=== PATIENT | female | born 1970 | race African-American/Black ===

== ENCOUNTER 2016-08-26 21:41 | Emergency (ER) | payer MEDICARE ==
[2016-08-26] MEDS ORDERED: Pantoprazole 40 MG VIAL ONE (22:21)
[2016-08-26] MEDS ORDERED: Promethazine HCl 25 MG/ML VIAL ONE (22:21)
[2016-08-26] MEDS ORDERED: Sodium Chloride 0.9% 1,000 ML BAG ONE (22:38)
[2016-08-26] MEDS ORDERED: HYDROcodone/Acetaminophen 10/325 mg Tablet ONE (23:21)
== END 2016-08-26 23:35 | disposition home or self-care (01) ==
LOC: MADERS 21:41
DX: R10.13 Epigastric pain (principal); G89.29 Other chronic pain; K21.9 Gastro-esophageal reflux disease without esophagitis; E66.9 Obesity, unspecified; Z79.82 Long term (current) use of aspirin; Z79.899 Other long term (current) drug therapy; Z79.2 Long term (current) use of antibiotics
CPT/HCPCS: 96361; 96374; 96375; C9113; J2270; J2550; J7050

== ENCOUNTER 2016-09-12 12:54 | Outpatient (CLI) | payer MEDICARE ==
[2016-09-12 13:35] LABS: ALT (SGPT) 14 U/L (8-55); AST (SGOT) 19 U/L (5-34); Albumin 3.5 g/dL (3.5-5.0); Alkaline Phosphatase 75 U/L (40-150); Anion Gap 11 mmol/L (10-20); BUN (Urea Nitrogen) 12 mg/dL (7.0-18.7); Bilirubin, Total 0.6 mg/dL (0.2-1.2); Calc. Creatinine Clearance 0 mL/min (70-130); Calcium 9.3 mg/dL (7.8-10.44); Carbon Dioxide 25 mmol/L (22-29); Chloride 110 mmol/L (98-107); Estimated GFR-MDRD Greater than 90; Globulin 2.1 g/dL (2.4-3.5); Glucose 91 mg/dL (70-105); Lipase 4 U/L (8-78); Potassium 3.8 mmol/L (3.5-5.1); Protein, Total 5.6 g/dL (6.0-8.3); Sodium 142 mmol/L (136-145)
[2016-09-15 19:11] LABS: H. pylori IgA ABS Less than 9.0 units (0.0-8.9); H. pylori IgG ABS Less than 0.9 U/mL (0.0-0.8); H. pylori IgM ABS Less than 9.0 units (0.0-8.9)
== END 2016-09-12 12:55 | disposition home or self-care (01) ==
LOC: MADLABBHPM 12:54
PROVIDERS: ATTEND Family Medicine
DX: R10.13 Epigastric pain (principal); R14.0 Abdominal distension (gaseous)
CPT/HCPCS: 36415; 82150; 83690

== ENCOUNTER 2017-06-09 17:34 | Emergency (ER) | payer MEDICARE ==
[2017-06-09 17:57] LABS: Bilirubin Negative (Negative); Blood, Urine Large (Negative); Clarity Cloudy (Clear); Glucose, Urine (Dipstick) Negative (Negative); Leukocyte Small (Negative); Nitrite Negative (Negative); Protein, Urine (Dipstick) > or equal to 300 mg/dL (Neg-Trace); Specific Gravity, Urine 1.025 (1.005-1.030)
[2017-06-09 17:59] LABS: RBC/HPF GREATER THAN 50-TNTC HPF (0-3)
[2017-06-09 18:04] LABS: Bacteria/HPF Rare-Few HPF (None Seen); Squamous Epithelial 0-3 HPF (0-3)
[2017-06-09 18:06] LABS: Pregnancy Test - Urine (BHCG) Negative (Negative); Pregu Control Background? CLEAR/WHITE (CLR/WHITE); Pregu Control Bar Appear? YES (CONTROL BAR); Specific Gravity 1.025 (1.002-1.036)
[2017-06-09] MEDS ORDERED: HYDROcodone/Acetaminophen 5/325 mg Tablet ONE (18:15)
[2017-06-09] MEDS ORDERED: Nitrofurantoin Monohyd/M-Cryst 100 MG CAP ONE (18:15)
== END 2017-06-09 18:20 | disposition home or self-care (01) ==
LOC: MADERS 17:34
DX: N30.91 Cystitis, unspecified with hematuria (principal); K21.9 Gastro-esophageal reflux disease without esophagitis; D50.0 Iron deficiency anemia secondary to blood loss (chronic); E66.9 Obesity, unspecified; Z79.82 Long term (current) use of aspirin; Z79.899 Other long term (current) drug therapy
CPT/HCPCS: 81003; 81015; 81025; 99283

== ENCOUNTER 2017-08-08 20:40 | Emergency (ER) | payer MEDICARE ==
[2017-08-08] MEDS ORDERED: Famotidine 20 MG TAB ONE (21:00)
[2017-08-08] MEDS ORDERED: Azithromycin 250 MG TAB ONE (21:00)
[2017-08-08] MEDS ORDERED: predniSONE 20 MG TAB ONE (21:00)
[2017-08-08] MEDS ORDERED: diphenhydrAMINE 25 MG CAP ONE (21:00)
== END 2017-08-08 21:05 | disposition home or self-care (01) ==
LOC: MADERS 20:40
DX: H10.45 Other chronic allergic conjunctivitis (principal); J01.90 Acute sinusitis, unspecified; K21.9 Gastro-esophageal reflux disease without esophagitis; D50.9 Iron deficiency anemia, unspecified; G89.29 Other chronic pain; E66.9 Obesity, unspecified; Z79.82 Long term (current) use of aspirin; Z79.899 Other long term (current) drug therapy
CPT/HCPCS: 99282; J7506

== ENCOUNTER 2017-09-03 13:02 | Emergency (ER) | payer MEDICARE ==
[2017-09-03] MEDS ORDERED: predniSONE 20 MG TAB ONE (13:22)
== END 2017-09-03 13:30 | disposition home or self-care (01) ==
LOC: MADERS 13:02
DX: M62.838 Other muscle spasm (principal); K21.9 Gastro-esophageal reflux disease without esophagitis; D50.0 Iron deficiency anemia secondary to blood loss (chronic); E66.9 Obesity, unspecified; Z79.899 Other long term (current) drug therapy; Z79.82 Long term (current) use of aspirin; V43.92XA Unspecified car occupant injured in collision with other type car in traffic accident, initial encounter
CPT/HCPCS: 99283; J7506

== ENCOUNTER 2017-09-10 16:38 | Outpatient (CLI) | payer MEDICARE ==
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
--- NOTE | 2017-09-10 18:08 | RAD ---
LUMBOSACRAL SPINE THREE VIEWS: HISTORY: Low back pain with sciatica. COMPARISON: None. FINDINGS: Three views of the lumbosacral spine show normal height and alignment of the vertebral bodies of the lumbar spine. There is vertebroplasty cement at multiple levels in the spine. There is no evidence of acute fracture or subluxation. IMPRESSION: No evidence of acute osseous abnormality. POS: [facility]
== END 2017-09-10 16:39 | disposition home or self-care (01) ==
LOC: MADRAD 16:38
PROVIDERS: ATTEND Family Medicine
DX: M54.41 Lumbago with sciatica, right side (principal); M54.42 Lumbago with sciatica, left side; M54.2 Cervicalgia
CPT/HCPCS: 72050; 72100

== ENCOUNTER 2017-11-09 12:47 | Outpatient (CLI) | payer MEDICARE ==
[~2017-11-09 12:47] MED LIST: Iopamidol 370 76% 100 ML VIAL ONE
--- NOTE | 2017-11-09 14:40 | CT ---
CT ABDOMEN AND PELVIS WITH IV AND ORAL CONTRAST: HISTORY: Dysuria. Pelvic pain. FINDINGS: The lung bases are clear. The gallbladder is decompressed. The liver, spleen, kidneys, adrenal glan ds, and pancreas are unremarkable. No urinary tract obstruction or calcification is evident. The ur inary bladder is incompletely distended. No free fluid is evident. No evidence of bowel obstruction . Degenerative changes of the lumbar spine. IMPRESSION: No urinary tract abnormalities are demonstrated to explain the patient's symptoms. No evidence of ur inary tract obstruction. POS: [facility]
== END 2017-11-09 12:48 | disposition home or self-care (01) ==
LOC: MADCT 12:47
PROVIDERS: ATTEND Family Medicine
DX: R10.2 Pelvic and perineal pain (principal); R30.0 Dysuria; R33.9 Retention of urine, unspecified
CPT/HCPCS: 74176

== ENCOUNTER 2018-04-13 04:31 | Emergency (ER) | payer MEDICARE | END 2018-04-13 05:40 | disposition home or self-care (01) | LOC: MADERS 04:31 | DX: J11.1 Influenza due to unidentified influenza virus with other respiratory manifestations (principal); D50.0 Iron deficiency anemia secondary to blood loss (chronic); E66.9 Obesity, unspecified; K21.9 Gastro-esophageal reflux disease without esophagitis; Z79.891 Long term (current) use of opiate analgesic; Z79.899 Other long term (current) drug therapy; Z79.82 Long term (current) use of aspirin | CPT/HCPCS: 87804; 94640; J7620 ==

== ENCOUNTER 2019-01-08 04:58 | Emergency (ER) | payer MEDICARE ==
[2019-01-08] MEDS ORDERED: Acetaminophen 500 MG TAB ONE (05:28)
[2019-01-08] MEDS ORDERED: Ondansetron ODT 4 MG TAB ONE ×2 (05:28→07:03)
[2019-01-08] MEDS ORDERED: Levofloxacin 500 mg/D5W 100 ml Premix Bag ONE (06:18)
--- NOTE | 2019-01-08 07:28 | RAD ---
RADIOGRAPH CHEST 2 VIEW: DATE: 01/08/2019 TIME: 5:34 AM HISTORY: 44 year old female with cough and fever. COMPARISON: 01/24/2019 FINDINGS: There is a new airspace opacity in the left lower lobe. The rest of lungs are clear. Cardiomediastina l silhouette is normal. No pleural effusion or pneumothorax. IMPRESSION: Left lower lobe pneumonia.
== END 2019-01-08 07:40 | disposition home or self-care (01) ==
LOC: MADERS 04:58
DX: J18.9 Pneumonia, unspecified organism (principal); K21.9 Gastro-esophageal reflux disease without esophagitis; D50.9 Iron deficiency anemia, unspecified; E66.9 Obesity, unspecified
CPT/HCPCS: 71046; 87804; J1956; J7620; Q0162

== ENCOUNTER 2019-04-11 19:43 | Emergency (ER) | payer MEDICARE ==
[2019-04-11] MEDS ORDERED: Ketorolac Tromethamine 60 MG/2 ML VIAL ONE (20:13)
== END 2019-04-11 20:45 | disposition home or self-care (01) ==
LOC: MADERS 19:43
DX: M54.5 Low back pain (principal); K21.9 Gastro-esophageal reflux disease without esophagitis; D50.9 Iron deficiency anemia, unspecified; E66.9 Obesity, unspecified; Z79.899 Other long term (current) drug therapy
CPT/HCPCS: 96372; 99283; J1885

== ENCOUNTER 2019-05-27 13:37 | Outpatient (CLI) | payer MEDICARE ==
--- NOTE | 2019-05-27 14:31 | RAD ---
2 VIEW CHEST: Date: 05/27/2019 HISTORY: Bronchitis with wheezing. COMPARISON: 01/08/2019. FINDINGS: There is hazy alveolar infiltrate seen in the right mid and right lower lung. There is more confluent alveolar infiltrate in the left lower lobe. The prior exam revealed a left lower lobe infiltrate as well. Heart and mediastinum appear unremarkable and stable. IMPRESSION: There are bilateral infiltrates as described. POS: [facility]
== END 2019-05-27 13:38 | disposition home or self-care (01) ==
LOC: MADRAD 13:37
PROVIDERS: ATTEND Family Medicine
DX: J20.9 Acute bronchitis, unspecified (principal); R06.2 Wheezing; R91.8 Other nonspecific abnormal finding of lung field
CPT/HCPCS: 71046

== ENCOUNTER 2019-06-11 08:54 | Outpatient (CLI) | payer MEDICARE ==
--- NOTE | 2019-06-11 10:53 | RAD ---
PA AND LATERAL VIEWS CHEST: HISTORY: Pneumonia. COMPARISON: 05/27/2019. FINDINGS: The heart size is normal. The lungs are expanded without lobar consolidation, pneumothoraces, or ple ural effusions. The previously noted infiltrates have resolved in the interim. IMPRESSION: No acute process. POS: [facility]
== END 2019-06-11 08:55 | disposition home or self-care (01) ==
LOC: MADRAD 08:54
PROVIDERS: ATTEND Family Medicine
DX: J18.9 Pneumonia, unspecified organism (principal)
CPT/HCPCS: 71046

== ENCOUNTER 2020-01-13 06:09 | Emergency (ER) | payer SELFPAY ==
[2020-01-13 06:55] LABS: #Lymphocytes 0.9 thou/uL (1.20-3.40); #Monocytes 0.2 thou/uL (0.11-0.59); #Neutrophils 14.1 thou/uL (1.40-6.50); %Basophils 0.2 % (0.0-1.0); %Eosinophils 0.2 % (0.0-10.0); %Lymphocytes 5.8 % (21.0-51.0); %Monocytes 1.4 % (0.0-10.0); %Neutrophils 92.4 % (42.0-75.0); Hemoglobin 11.5 g/dL (12.0-16.0); Mean Corpuscular HGB CONC 31.2 g/dL (32.0-36.0); Mean Corpuscular Hemoglobin 29.5 pg (27.0-31.0); Mean Corpuscular Volume 94.5 fL (78.0-98.0); Mean Platelet Volume 12.2 fL (7.4-10.4); Platelet Count 195 thou/uL (130-400); RBC Distribution Width 15.3 % (11.5-14.5); Red Blood Cell (RBC) Count 3.89 mill/uL (4.20-5.40); White Blood Cell (WBC) Count 15.3 thou/uL (4.8-10.8)
[2020-01-13 06:59] LABS: BHCG - Serum Negative (NEGATIVE); Pregs Control Background? CLEAR/WHITE (CLR/WHITE); Pregs Control Bar Appear? YES (CONTROL BAR)
[2020-01-13 07:03] LABS: ALT (SGPT) 31 U/L (8-55); AST (SGOT) 26 U/L (5-34); Albumin 3.7 g/dL (3.5-5.0); Alkaline Phosphatase 77 U/L (40-110); Anion Gap 18 mmol/L (10-20); BUN (Urea Nitrogen) 18 mg/dL (7.0-18.7); Calc. Creatinine Clearance 0 mL/min (70-130); Carbon Dioxide 22 mmol/L (22-29); Chloride 101 mmol/L (98-107); Estimated GFR-MDRD 48; Globulin 3.2 g/dL (2.4-3.5); Glucose 216 mg/dL (70-105); Protein, Total 6.9 g/dL (6.0-8.3); Sodium 137 mmol/L (136-145)
[2020-01-13 07:13] LABS: Anisocytosis SLIGHT = 6-15 cells (100X) (0-5/hpf)
[2020-01-13 07:14] LABS: Platelet Morphology Comment Appears Adequate
[2020-01-13] MEDS ORDERED: Sodium Chloride 0.9% 250 ML 250 ML ONE (07:38)
[2020-01-13] MEDS ORDERED: Sodium Chloride 0.9% 1,000 ML ONE ×2 (07:38→11:35)
[2020-01-13] MEDS ORDERED: Sodium Chloride 0.9% 100 ML ONE (07:38)
[2020-01-13] MEDS ORDERED: Azithromycin 500 MG VIAL ONE (07:38)
[2020-01-13] MEDS ORDERED: cefTRIAXone\\ROCEPHIN 2 GM VIAL ONE (07:39)
--- NOTE | 2020-01-13 07:41 | RAD ---
Chest one view HISTORY: Dyspnea. Cough. COVID positive. COMPARISON: 06/11/2019. FINDINGS: Cardiac silhouette is magnified by projection. Shallow inspiration accentuates pulmonary ma rkings. Mediastinum is midline. Ill-defined patchy areas of predominantly peripheral opacity are present throughout each lung. No lob ar consolidation or evidence of pneumothorax. Vertebroplasty cement evident at lower thoracic levels. IMPRESSION : Multifocal infiltrates consistent with COVID pneumonitis.
[2020-01-13] MEDS ORDERED: Enoxaparin Sodium 40 MG/0.4 ML SYRINGE ONE (07:44)
[2020-01-13] MEDS ORDERED: guaiFENesin/Codeine Phosphate 100 mg/10 mg 5 ml UD Cup ONE ×2 (11:19→11:25)
[2020-01-13] MEDS ORDERED: Guaifenesin DM 100-10/5 ML UDCUP ONE (11:25)
[2020-01-13] MEDS ORDERED: Albuterol 200 PUFF (6.7GM INHALER) ONE (11:32)
[2020-01-13] MEDS ORDERED: Dexamethasone 10 MG/ML VIAL ONE (11:34)
== END 2020-01-13 13:25 | disposition short-term general hospital (02) ==
LOC: MADERS 06:09
DX: A41.9 Sepsis, unspecified organism (principal); R65.20 Severe sepsis without septic shock; U07.1 COVID-19; J12.89 Other viral pneumonia; K21.9 Gastro-esophageal reflux disease without esophagitis
CPT/HCPCS: 71045; 80053; 83605; 84484; 84703; 85025; 85379; 93005; 96365; 96367; 96372; 96375; J0456; J0696; J1100; J1650; J3490; J7050

== ENCOUNTER 2020-05-10 19:24 | Emergency (ER) | payer MEDICARE ==
[2020-05-10 20:03] LABS: Bilirubin Negative (Negative); Blood, Urine Negative (Negative); Clarity Clear (Clear); Glucose, Urine (Dipstick) 100 mg/dL (Negative); Ketone, Urine Negative (Negative); Leukocyte Trace (Negative); Nitrite Negative (Negative); Protein, Urine (Dipstick) Trace mg/dL (Neg-Trace); Specific Gravity, Urine 1.025 (1.005-1.030); pH, Urine 6.5 (5.0-9.0)
[2020-05-10 20:08] LABS: Bacteria/HPF Rare-Few HPF (None Seen); RBC/HPF 0-3 HPF (0-3); Squamous Epithelial 0-3 HPF (0-3); WBC/HPF 0-3 HPF (0-3)
[2020-05-10] MEDS ORDERED: Morphine 2 MG/ML VIAL ONE (20:20)
[2020-05-10] MEDS ORDERED: Morphine 4 MG/ML VIAL ONE (20:20)
[2020-05-10] MEDS ORDERED: Ketorolac Tromethamine 30 MG/ML VIAL ONE (20:20)
== END 2020-05-10 20:38 | disposition home or self-care (01) ==
LOC: MADERS 19:24
DX: M54.42 Lumbago with sciatica, left side (principal); K21.9 Gastro-esophageal reflux disease without esophagitis; D50.9 Iron deficiency anemia, unspecified; E66.9 Obesity, unspecified; Z79.899 Other long term (current) drug therapy; Z85.79 Personal history of other malignant neoplasms of lymphoid, hematopoietic and related tissues
CPT/HCPCS: 81003; 81015; 96372; 99283; J1885; J2270

== ENCOUNTER 2020-07-17 07:40 | Emergency (ER) | payer MEDICARE | END 2020-07-17 09:25 | disposition home or self-care (01) | LOC: MADERS 07:40 | DX: J20.8 Acute bronchitis due to other specified organisms (principal); K21.9 Gastro-esophageal reflux disease without esophagitis; D50.9 Iron deficiency anemia, unspecified; E66.9 Obesity, unspecified; Z79.899 Other long term (current) drug therapy; Z79.82 Long term (current) use of aspirin | CPT/HCPCS: 71046; 87804 ==

== ENCOUNTER 2020-08-09 08:43 | Emergency (ER) | payer MEDICARE ==
[2020-08-09 09:15] LABS: Bilirubin Negative (Negative); Blood, Urine Trace (Negative); Clarity Clear (Clear); Glucose, Urine (Dipstick) 250 mg/dL (Negative); Ketone, Urine Negative (Negative); Leukocyte Negative (Negative); Nitrite Negative (Negative); Protein, Urine (Dipstick) 100 mg/dL (Neg-Trace); Specific Gravity, Urine 1.025 (1.005-1.030); pH, Urine 5.5 (5.0-9.0)
[2020-08-09] MEDS ORDERED: Cefepime 2 GM VIAL ONE (09:34)
[2020-08-09] MEDS ORDERED: Dexamethasone 10 MG/ML VIAL ONE (09:34)
[2020-08-09] MEDS ORDERED: Sodium Chloride 0.9% 100 ML ONE (09:34)
[2020-08-09 09:49] LABS: Bacteria/HPF Rare-Few HPF (None Seen); RBC/HPF 0-3 HPF (0-3); Squamous Epithelial 0-3 HPF (0-3); WBC/HPF 0-3 HPF (0-3)
[2020-08-09 10:01] LABS: ALT (SGPT) 22 U/L (8-55); AST (SGOT) 24 U/L (5-34); Albumin 3.9 g/dL (3.5-5.0); Alkaline Phosphatase 65 U/L (40-110); Anion Gap 15 mmol/L (10-20); BUN (Urea Nitrogen) 14 mg/dL (7.0-18.7); Bilirubin, Total 0.6 mg/dL (0.2-1.2); Calc. Creatinine Clearance 0 mL/min (70-130); Calcium 9.4 mg/dL (7.8-10.44); Carbon Dioxide 22 mmol/L (22-29); Chloride 107 mmol/L (98-107); Globulin 2.4 g/dL (2.4-3.5); Glucose 158 mg/dL (70-105); Lipase 10 U/L (8-78); Magnesium 1.6 mg/dL (1.6-2.6); Potassium 3.8 mmol/L (3.5-5.1); Protein, Total 6.3 g/dL (6.0-8.3); Sodium 140 mmol/L (136-145)
[2020-08-09 10:20] LABS: Anisocytosis SLIGHT = 6-15 cells (100X) (0-5/hpf); Band 14 % (5-11); Eosinophils 5 % (0-10); Hemoglobin 11.5 g/dL (12.0-16.0); Hypochromia SLIGHT = 6-15 cells (100X) (0-5/hpf); Lymphocytes 30 % (21-51); MDiff Complete? YES; Mean Corpuscular HGB CONC 29.8 g/dL (32.0-36.0); Mean Corpuscular Hemoglobin 29.2 pg (27.0-31.0); Mean Corpuscular Volume 98.2 fL (78.0-98.0); Mean Platelet Volume 9.7 fL (7.4-10.4); Monocytes 6 % (0-10); Neutrophil 45 % (42-75); Platelet Count 170 thou/uL (130-400); Platelet Morphology Comment Appears Adequate; RBC Distribution Width 15.7 % (11.5-14.5); Red Blood Cell (RBC) Count 3.95 mill/uL (4.20-5.40); White Blood Cell (WBC) Count 3.1 thou/uL (4.8-10.8)
[2020-08-09 11:04] LABS: SARS-CoV-2 NAA Rapid Test Not Detected (NotDetected)
[2020-08-09] MEDS ORDERED: Sodium Chloride 0.9% 250 ML 500 ML ONE (11:39)
[2020-08-09] MEDS ORDERED: Guaifenesin DM 100-10/5 ML UDCUP ONE (13:43)
== END 2020-08-09 14:13 | disposition short-term general hospital (02) ==
LOC: MADERS 08:43
DX: A41.9 Sepsis, unspecified organism (principal); R73.9 Hyperglycemia, unspecified; J84.9 Interstitial pulmonary disease, unspecified; D84.9 Immunodeficiency, unspecified; K21.9 Gastro-esophageal reflux disease without esophagitis; D50.9 Iron deficiency anemia, unspecified; E66.9 Obesity, unspecified; Z85.79 Personal history of other malignant neoplasms of lymphoid, hematopoietic and related tissues; Z79.899 Other long term (current) drug therapy; Z79.891 Long term (current) use of opiate analgesic; Z79.82 Long term (current) use of aspirin
CPT/HCPCS: 0240U; 71046; 80053; 83605; 83690; 83735; 84484; 85025; 87040; 94760; 81003; 81015; 96365; 96366; 96367; 96375; J0692; J1100; J1956; J3370; J3490; J7050

== ENCOUNTER 2020-10-03 09:06 | Emergency (ER) | payer MEDICARE ==
[2020-10-04 14:34] LABS: SARS-CoV-2 PCR by NAA Not Detected (NotDetected)
== END 2020-10-03 11:57 | disposition home or self-care (01) ==
LOC: MADERS 09:06
DX: J18.9 Pneumonia, unspecified organism (principal); Z20.822 Contact with and (suspected) exposure to COVID-19; K21.9 Gastro-esophageal reflux disease without esophagitis; D64.9 Anemia, unspecified; E66.9 Obesity, unspecified; Z79.82 Long term (current) use of aspirin; Z85.79 Personal history of other malignant neoplasms of lymphoid, hematopoietic and related tissues; Z79.891 Long term (current) use of opiate analgesic; Z79.899 Other long term (current) drug therapy
CPT/HCPCS: 71045; U0003; U0005

== ENCOUNTER 2020-12-04 22:45 | Emergency (ER) | payer MEDICARE ==
[2020-12-04 23:39] LABS: Bilirubin Negative (Negative); Blood, Urine Negative (Negative); Clarity Clear (Clear); Glucose, Urine (Dipstick) >=1000 mg/dL (Negative); Ketone, Urine Negative (Negative); Leukocyte Negative (Negative); Nitrite Negative (Negative); Protein, Urine (Dipstick) Negative (Neg-Trace); Urobilinogen 0.2 mg/dL (Less than 2)
[2020-12-05] MEDS ORDERED: Ibuprofen 600 MG TAB ONE (00:07)
[2020-12-05 00:38] LABS: Band 1 % (5-11); Hemoglobin 9.9 g/dL (12.0-16.0); Lymphocytes 30 % (21-51); MDiff Complete? YES; Mean Corpuscular HGB CONC 30.1 g/dL (32.0-36.0); Mean Corpuscular Volume 96.5 fL (78.0-98.0); Mean Platelet Volume 7.7 fL (7.4-10.4); Monocytes 20 % (0-10); Neutrophil 49 % (42-75); Platelet Count 418 thou/uL (130-400); Platelet Morphology Comment Appears Adequate; Red Blood Cell (RBC) Count 3.42 mill/uL (4.20-5.40); Tear Drops SLIGHT = 2-5 cells (100X) (0-1/hpf); White Blood Cell (WBC) Count 4.3 thou/uL (4.8-10.8)
[2020-12-05 00:43] LABS: ALT (SGPT) 19 U/L (8-55); AST (SGOT) 11 U/L (5-34); Albumin 3.4 g/dL (3.5-5.0); Alkaline Phosphatase 99 U/L (40-110); Anion Gap 15 mmol/L (10-20); BUN (Urea Nitrogen) 24 mg/dL (7.0-18.7); Bilirubin, Total 0.4 mg/dL (0.2-1.2); CK (CPK) 23 U/L (29-168); CRP (Inflammatory) 8.28 mg/dL (= or < 0.5); Calc. Creatinine Clearance 0 mL/min (70-130); Calcium 10.3 mg/dL (7.8-10.44); Carbon Dioxide 25 mmol/L (22-29); Chloride 100 mmol/L (98-107); Globulin 2.6 g/dL (2.4-3.5); Glucose 327 mg/dL (70-105); Potassium 4.3 mmol/L (3.5-5.1); Sodium 136 mmol/L (136-145)
[2020-12-05] MEDS ORDERED: Cyclobenzaprine 10 MG TAB ONE (00:59)
[2020-12-05] MEDS ORDERED: Ondansetron ODT 4 MG TAB ONE (00:59)
[2020-12-05 20:18] LABS: SARS-CoV-2 PCR by NAA Not Detected (NotDetected)
== END 2020-12-05 01:15 | disposition home or self-care (01) ==
LOC: MADERS 22:45
DX: M62.838 Other muscle spasm (principal); R50.9 Fever, unspecified; M54.50 Low back pain, unspecified; M54.6 Pain in thoracic spine; K21.9 Gastro-esophageal reflux disease without esophagitis; E66.9 Obesity, unspecified; Z20.822 Contact with and (suspected) exposure to COVID-19; X50.9XXA Other and unspecified overexertion or strenuous movements or postures, initial encounter
CPT/HCPCS: 80053; 81003; 82550; 84484; 85025; 86140; 87040; 87086; U0003; U0005; 36415; 99283; Q0162

== ENCOUNTER 2020-12-09 15:25 | Emergency (ER) | payer MEDICARE ==
[2020-12-09 16:35] LABS: Bilirubin Negative (Negative); Blood, Urine Negative (Negative); Clarity Clear (Clear); Glucose, Urine (Dipstick) >=1000 mg/dL (Negative); Ketone, Urine Negative (Negative); Leukocyte Negative (Negative); Nitrite Negative (Negative); Protein, Urine (Dipstick) 30 mg/dL (Neg-Trace); Specific Gravity, Urine 1.015 (1.005-1.030); Urobilinogen 0.2 mg/dL (Less than 2); pH, Urine 6.5 (5.0-9.0)
[2020-12-09 16:42] LABS: Bacteria/HPF Rare-Few HPF (None Seen); RBC/HPF 0-3 HPF (0-3); Squamous Epithelial 0-3 HPF (0-3); WBC/HPF 0-3 HPF (0-3)
[2020-12-09 17:20] LABS: ALT (SGPT) 35 U/L (8-55); AST (SGOT) 22 U/L (5-34); Albumin 3.7 g/dL (3.5-5.0); Alkaline Phosphatase 177 U/L (40-110); Anion Gap 19 mmol/L (10-20); BUN (Urea Nitrogen) 25 mg/dL (7.0-18.7); Bilirubin, Total 0.6 mg/dL (0.2-1.2); CK (CPK) 17 U/L (29-168); Calc. Creatinine Clearance 0 mL/min (70-130); Calcium 11.4 mg/dL (7.8-10.44); Carbon Dioxide 23 mmol/L (22-29); Chloride 96 mmol/L (98-107); Globulin 3.7 g/dL (2.4-3.5); Glucose 380 mg/dL (70-105); Potassium 4.3 mmol/L (3.5-5.1); Protein, Total 7.4 g/dL (6.0-8.3); Sodium 134 mmol/L (136-145)
[2020-12-09] MEDS ORDERED: Sodium Chloride 0.9% 1,000 ML ONE ×2 (17:32→20:16)
[2020-12-09] MEDS ORDERED: Sodium Chloride 0.9% 100 ML ONE (17:32)
[2020-12-09] MEDS ORDERED: Morphine 4 MG/ML VIAL ONE ×3 (17:32→21:58)
[2020-12-09] MEDS ORDERED: cefTRIAXone\\ROCEPHIN 1 GM VIAL ONE (17:32)
[2020-12-09] MEDS ORDERED: Sodium Chloride 0.9% 250 ML 500 ML ONE (17:32)
[2020-12-09 17:52] LABS: Anisocytosis SLIGHT = 6-15 cells (100X) (0-5/hpf); Band 8 % (5-11); Hemoglobin 11.1 g/dL (12.0-16.0); Hypochromia SLIGHT = 6-15 cells (100X) (0-5/hpf); Lymphocytes 33 % (21-51); MDiff Complete? YES; Mean Corpuscular HGB CONC 29.6 g/dL (32.0-36.0); Mean Corpuscular Hemoglobin 28.5 pg (27.0-31.0); Mean Corpuscular Volume 96.4 fL (78.0-98.0); Mean Platelet Volume 8.5 fL (7.4-10.4); Monocytes 16 % (0-10); Neutrophil 43 % (42-75); Platelet Count 495 thou/uL (130-400); Platelet Morphology Comment Appears Increased; RBC Distribution Width 14.6 % (11.5-14.5); Red Blood Cell (RBC) Count 3.88 mill/uL (4.20-5.40); White Blood Cell (WBC) Count 5.3 thou/uL (4.8-10.8)
[2020-12-09] MEDS ORDERED: Labetalol HCl 100 MG/20 ML VIAL ONE (19:42)
== END 2020-12-09 22:18 | disposition short-term general hospital (02) ==
LOC: MADERS 15:25
DX: A41.9 Sepsis, unspecified organism (principal); M00.9 Pyogenic arthritis, unspecified; E11.65 Type 2 diabetes mellitus with hyperglycemia; R00.0 Tachycardia, unspecified; D50.9 Iron deficiency anemia, unspecified; K21.9 Gastro-esophageal reflux disease without esophagitis; E66.9 Obesity, unspecified; Z79.899 Other long term (current) drug therapy; Z79.82 Long term (current) use of aspirin
CPT/HCPCS: 36415; 72125; 80053; 81003; 81015; 82550; 83605; 84443; 84484; 85025; 85652; 86140; 87040; 93005; 96365; 96366; 96375; 96376; J0696; J2270; J3370; J3490; J7050

== ENCOUNTER 2022-11-05 16:16 | Emergency (ER) | payer OTHER ==
[~2022-11-05 16:16] MED LIST changes: -Iopamidol 370 76% 100 ML VIAL ONE; +Sodium Chloride 0.9% 1,000 ML BAG ONE
[2022-11-05 17:38] LABS: #Lymphocytes 0.9 thou/uL (1.20-3.40); #Monocytes 0.3 thou/uL (0.11-0.59); #Neutrophils 2.8 thou/uL (1.40-6.50); %Basophils 0.6 % (0.0-1.0); %Eosinophils 0.5 % (0.0-10.0); %Lymphocytes 22.4 % (21.0-51.0); %Monocytes 6.7 % (0.0-10.0); %Neutrophils 69.8 % (42.0-75.0); Hematocrit 32.2 % (36.0-47.0); Mean Corpuscular HGB CONC 31.1 g/dL (32.0-36.0); Mean Corpuscular Hemoglobin 29.3 pg (27.0-31.0); Mean Platelet Volume 8.6 fL (7.4-10.4); Platelet Count 291 10x3/uL (130-400); RBC Distribution Width 14.6 % (11.5-14.5); Red Blood Cell (RBC) Count 3.42 mill/uL (4.20-5.40)
[2022-11-05 17:39] LABS: BHCG - Serum Negative (NEGATIVE); Pregs Control Background? CLEAR/WHITE (CLR/WHITE); Pregs Control Bar Appear? YES (CONTROL BAR)
[2022-11-05 17:46] LABS: ALT (SGPT) 11 U/L (8-55); AST (SGOT) 16 U/L (5-34); Alkaline Phosphatase 96 U/L (40-110); Anion Gap 15 mmol/L (10-20); BUN (Urea Nitrogen) 11 mg/dL (7.0-18.7); Bilirubin, Total 0.3 mg/dL (0.2-1.2); Calc. Creatinine Clearance 0 mL/min (70-130); Calcium 10.9 mg/dL (7.8-10.44); Carbon Dioxide 25 mmol/L (22-29); Chloride 106 mmol/L (98-107); Estimated GFR 63; Globulin 2.9 g/dL (2.4-3.5); Glucose 102 mg/dL (70-105); Potassium 4.1 mmol/L (3.5-5.1); Protein, Total 6.9 g/dL (6.0-8.3); Sodium 142 mmol/L (136-145)
[2022-11-05 18:25] LABS: SARS-CoV-2 NAA Rapid Test Not Detected (NotDetected)
== END 2022-11-05 20:06 | disposition home or self-care (01) ==
LOC: MADERS 16:16
DX: R05.9 Cough, unspecified (principal); R09.81 Nasal congestion; Z20.822 Contact with and (suspected) exposure to COVID-19; K21.9 Gastro-esophageal reflux disease without esophagitis; Z79.899 Other long term (current) drug therapy; E66.9 Obesity, unspecified
CPT/HCPCS: 71046; 80053; 84703; 85025; 87804 ×2; U0002; 36415; 96360; J7050